=== PATIENT | male | born 1950 | race Caucasian/White ===

== ENCOUNTER 2017-02-22 01:48 | Inpatient (IN) | payer MEDICARE, MEDICAID ==
[~2017-02-22] VITALS: Ht 180.3 cm; Wt 170.4 kg
--- NOTE | ~2017-02-22 | ECHO ---
Transthoracic Echocardiography Report (TTE) Demographics Patient Name MOO CARPIO Date of Study 02/22/2017 Patient Number [id number] Visit Number [id number] Date of 1950 Room Number G6334 Gender Male Number Age 66 year(s) Referring Shantal Victor V Head Of Visual Merchandising Paris Kumar, Physician RT,RVT,RDCS Physician Interpreting Vijaya Russo Special Needs Babysitter Physician MD Supervising Ordering Shantal Campa MD/MLP Physician MD Nurse [employer] Dedicated Truck Driver Conclusions Summary Technically difficult study. Poor quality images. Overall LV systolic function appears to be preserved, Unable to visualize endocardial borders and unable to comment on accurate LVEF due to suboptimal visualization of the LV. Moderate left ventricular hypertrophy. The aortic root appears mildly dilated. The maximum diameter measures 4.2 cm. No significant valvular abnormalities. IVC imaging is consistent with normal RA pressures. Procedure Type of Study TTE procedure:2D Echocardiogram, M-Mode, Doppler , Color Doppler. Procedure Date Date: 02/22/2017 Start: 10:52 AM Study Location: Inpatient Portable Technical Quality: Limited visualization due to body habitus. Indications:Arrhythmia. Additional Indications:cholangitis Appropriate Use Criteria: 9 Patient Status: Routine HR: 104 bpm BP: 140/84 mmHg M-Mode/2D Measurements LV Diastolic Dimension: 5.19 cm LV Systolic Dimension: 3.93 cm LV PW Diastolic: 1.41 cm LV Septum Systolic: 2.92 cm Cardiac Output: 3.1 l/min LV PW Systolic: 1.87 cm AV Cusp Separation: 2.2 cm EF Estimated: 45 % LA Dimension: 3.6 cm MV EPSS: 0.7 cm LVOT: 2.1 cm LVOT VTI: 8.61 cm LV Stroke volume: 29.81 ml Doppler Measurements AV Peak Velocity: 1.16 m/s MV Peak E-Wave: 0.6 m/s AV Peak Gradient: 5.38 mmHg AV Mean Gradient: 3 mmHg MV P1/2t: 42 msec LVOT Peak Velocity: 0.58 m/s TR Velocity:2.28 m/s TR Gradient:20.79 mmHg Estimated PASP: 30.79 mmHg Estimated RAP:10 mmHg Estimated RVSP: 31 mmHg Findings Left Ventricle Moderate left ventricular hypertrophy. Right Ventricle RV is not well visualized. Left Atrium Normal left atrial size. Right Atrium Normal right atrial size. IVC imaging is consistent with normal RA pressures. Mitral Valve Normal mitral valve structure and function. Aortic Valve AV is not well visualized. No e/o significant or AI based on color/doppler interrogation. Tricuspid Valve Mild tricuspid regurgitation by color Doppler. The pulmonary pressure (RVSP) is 39 mmHg. Pulmonic Valve Normal pulmonic valve structure and function. Pericardial Effusion No evidence of pericardial effusion. Miscellaneous The aortic root appears mildly dilated. The maximum diameter measures 4.2 cm. Pleural Effusion No evidence of pleural effusion. Contractility Score LV regional wall motion:(0-Non visualized 1-Normal 2-Hypokinesis 3-Akinesis 4-Dyskinesis 5-Aneurysm) Signature dtt: MARIA FERNANDA LAU dtd: 02/22/17 1052 Physician Self Edit
--- NOTE | ~2017-02-22 | OR ---
PATIENT'S NAME: MOO CARPIO [facility] AGE: 66 Y [address] ROOM: [address] [place] [id number] LOCATION: GPCU ADMIT DATE: 02/22/2017 OR/Procedure Report DISCHARGE DATE: 02/26/2017 FAMILY PHYSICIAN: Kenneth Mak DO ATTENDING PHYSICIAN: DELORES HOLDER V SURGEON: Chapo Deluca MD ASSEMBLY STOCK SUPERVISOR: Chase Mathis PA-C DATE OF PROCEDURE: 02/25/2017 Added Assist per provider 03/02/2017 AO PREOPERATIVE DIAGNOSIS: Cholelithiasis, status post ERCP. POSTOPERATIVE DIAGNOSIS: Cholelithiasis, status post ERCP. PROCEDURE PERFORMED: Cholecystectomy. FINDINGS: The cystic duct was dilated, and stones were present in the gallbladder. ESTIMATED BLOOD LOSS: 20 mL. COMPLICATIONS: None. INDICATIONS: The patient is a 66-year-old male, who had cholelithiasis and was felt to be choledocholithiasis. He did undergo ERCP. He also had pancreatitis. Pancreatic enzymes improved, as well as his liver function tests with his cholelithiasis. I was asked to perform cholecystectomy. We discussed surgery with the patient and the risks, benefits, and alternatives, which included bleeding, infection, bile leak, bile duct injury, and injury to other viscera. We also discussed his obesity and complications associated with this, as well as pulmonary and cardiac complications. He understood the risks and elected to proceed. DESCRIPTION OF PROCEDURE: The patient was taken to the Operating Room. He was placed supine, given IV sedation, and was subsequently intubated. His abdomen was prepped with ChloraPrep and sterilely draped. Local anesthetic was infiltrated superior to the umbilicus in the midline. A transverse incision was created and the abdomen was elevated. A Veress needle was inserted. Pneumoperitoneum was induced. Following this, a 5-mm trocar was inserted, followed by insertion of the camera. There was no injury from initial trocar placement. Three more trocars were then positioned, the 11-mm epigastric and two 5-mm right subcostal ports. Skin overlying the peritoneum was first anesthetized prior to making the incisions. All three of these trocars were inserted under direct visualization. The gallbladder was grasped and it was elevated. The fatty liver made elevation more difficult. There were adhesions PATIENT'S NAME: MOO CARPIO [facility] AGE: 66 Y [address] ROOM: [facility] [place] [address] LOCATION: GPCU ADMIT DATE: 02/22/2017 OR/Procedure Report DISCHARGE DATE: 02/26/2017 FAMILY PHYSICIAN: Kenneth Mak DO ATTENDING PHYSICIAN: DELORES HOLDER V that were taken down both bluntly and with electrocautery. The infundibulum was then grasped and retracted inferiorly and laterally to expose Calot triangle. The cystic duct and artery were dissected around circumferentially. We felt we had obtained a critical window. The cystic duct was quite dilated. We clipped this and then divided it. Our clips would just barely reach across the cystic duct. Because of this, an Endoloop was placed around the cystic duct and secured. What was thought to be the cystic artery, was clipped and divided. After further inspection, this was felt to be a large lymphatic. We then were able to better identify the artery, which was able to be seen extending onto the gallbladder. This was then doubly clipped and divided. The gallbladder was then removed from liver bed using electrocautery. This was placed in EndoCatch bag and brought out through the epigastric port site. There were stones present in the gallbladder. The operative field was inspected and it appeared hemostatic. The clips appeared to be in good position on the cystic duct and artery. The area was irrigated and fluid was removed. The pneumoperitoneum was released. The trocars were removed. The trocar sites appeared hemostatic. WOUND CLOSURE: The fascia of the epigastric port site was approximated with 0 Vicryl suture, followed by skin closure of all four port sites with 4-0 Monocryl suture. Steri-Strips and sterile dressings were placed. POSTOPERATIVE CONDITION: The patient was extubated and sent to Recovery in good condition. MD TORRES IVERSON/tammy /[id number] Added Assist per provider 03/02/2017 AO d: 02/25/172121 t: 03/05/17611, OPERATIVE SUMMARY
--- NOTE | ~2017-02-22 | DS ---
PATIENT'S NAME: MOO CARPIO [facility] AGE: 66 Y [address] ROOM: [address] [place] [id number] LOCATION: GPCU ADMIT DATE: 02/22/2017 Discharge Summary DISCHARGE DATE: 02/26/2017 FAMILY PHYSICIAN: Kenneth Mak DO ATTENDING PHYSICIAN: Valente Murguia V ADDENDUM: PHYSICAL EXAMINATION: VITAL SIGNS: Temperature 98.2 degree Fahrenheit, pulse of 95, blood pressure 127/89, and respiratory rate of 18. GENERAL APPEARANCE: The patient is alert and awake in no acute distress and the patient eager to go home. HEAD: Normocephalic, atraumatic. CHEST: Clear to auscultation bilaterally. HEART: Irregularly irregular. No murmurs, rubs, or gallops. ABDOMEN: Soft, nontender, and nondistended. Bowel sounds present. APPLIED MARINE PHYSICS PROFESSOR: Alert and oriented x3. Motor and sensory are grossly intact. LOWER EXTREMITIES: Trace pitting edema. HOSEAWE MD JOSE GUADALUPE WOODWARD/tammy /[id number] d: 02/27/1714 t: 03/10/17 1618, DISCHARGE SUMMARY
--- NOTE | ~2017-02-22 | DS ---
PATIENT'S NAME: [facility]ON [facility] AGE: 66 Y [address] ROOM: [place] [address] LOCATION: GPCU ADMIT DATE: 02/22/2017 Discharge Summary DISCHARGE DATE: 02/26/2017 FAMILY PHYSICIAN: Kenneth Mak DO ATTENDING PHYSICIAN: Valente Murguia V ADMITTING DIAGNOSIS: Gallstone pancreatitis. DISCHARGE DIAGNOSES: 1. Cholangitis with cholecystitis. 2. Pancreatitis. 3. Diabetes mellitus. 4. Hypertension. 5. Acute on chronic kidney disease. 6. Persistent atrial fibrillation. 7. Hypothyroidism. 8. Obesity. 9. Obstructive sleep apnea. PROCEDURES: ERCP with stent placement and cholecystectomy. CONSULTATION: GI consultation and General Surgery consultation. HISTORY OF PRESENT ILLNESS: The patient is a 66-year-old male who presents here from [facility] with crampy mild epigastric and right upper quadrant pain associated with nausea, vomiting, and low-grade fever. Workup at [facility] revealed elevated transaminitis as well as evidence of cholecystitis with common bile duct and intra and extrahepatic duct dilation. A small gallstone was visible in the common bile duct. The patient was febrile at the outside hospital. The patient was transferred to our hospital. The patient was also noted to have uncontrolled blood glucose and blood glucose in the 400s. HOSPITAL COURSE: The patient was admitted. The patient was also found to have elevated lipase level and was started on IV fluids. Kept n.p.o. ERCP was held as the patient was on Eliquis. The patient had ERCP with stent placement with improvement of symptoms. General Surgery was consulted and the patient had cholecystectomy done on February 25, 2017. The patient tolerated the procedure well. During his stay, the patient was started on ceftriaxone. During his stay, the patient was afebrile and white blood cell count improved. Also, the patient had acute on chronic kidney disease and was treated with IV fluid with improvement of symptoms. The patient has chronic kidney disease stage IV. On evaluation of medication, the patient was on Janumet and metformin. On the day of discharge, those medications were held due to history of pancreatitis and chronic kidney disease with GFR below 40. A long PATIENT'S NAME: [facility] AGE: 66 Y [address] ROOM: [place] [id number] LOCATION: GPCU ADMIT DATE: 02/22/2017 Discharge Summary DISCHARGE DATE: 02/26/2017 FAMILY PHYSICIAN: Kenneth Mak DO ATTENDING PHYSICIAN: Valente Murguia V discussion was made about medication change. The patient was also started on detemir 10 units q.h.s. Diabetic education was consulted and use of insulin was discussed with the patient. The patient reports that he has used insulin before and is able to administer his medication. His hemoglobin A1c was 10. The patient was also told to hold his Eliquis until February 27, 2017, due to recent surgery and ERCP. The patient was discharged home in stable condition to follow up with GI and General Surgery. CONDITION: Stable. DISPOSITION: Home. DISCHARGE MEDICATION: See NOV. DISCHARGE INSTRUCTIONS: Start Eliquis on February 27, 2017, to discontinue Janumet and metformin and start Detemir 10 units q.h.s. and follow up with primary care physician. Followup with primary care physician and General Surgery. Greater than 30 minutes was spent on discharge planning. HOSEAWE MD JOSE GUADALUPE WOODWARD/tammy /[id number] d: 02/27/17722 t: 02/27/17 1749, DISCHARGE SUMMARY
--- NOTE | ~2017-02-22 | CON ---
PATIENT'S NAME: [facility] AGE: 66 Y [address] ROOM: [address] [place], [place] [address] LOCATION: GPCU ADMIT DATE: 02/22/2017 Consultation DISCHARGE DATE: 02/26/2017 FAMILY PHYSICIAN: Kenneth Mak DO ATTENDING PHYSICIAN: Valente Murguia V DATE OF CONSULTATION: 02/25/2017 REFERRING PHYSICIAN: Silvia Christopher MD [facility] Nephrology Consultation REASON FOR CONSULTATION: Acute kidney injury on chronic kidney disease, stage 3. HISTORY OF PRESENT ILLNESS: This is a 66-year-old male patient, who is admitted for sepsis secondary to cholangitis. The patient's creatinine on admission was 2.4, and has improved with IV hydration to 1.6 today. The patient was also noted to be on ARB, Lasix and does have a history of nausea and vomiting with some dehydration prior to his admission. A CT did show cholelithiasis with extrahepatic biliary ductal dilatation with mild cirrhotic liver. The patient did undergo an ERCP as well as laparoscopic cholecystectomy by Dr. Deluca. Due to the patient's acute kidney injury on chronic kidney disease, stage 3, Nephrology has been asked to consult to monitor his creatinine while he is inpatient. PAST MEDICAL HISTORY: As listed above includin. Atrial fibrillation. 2. Long-term anticoagulation in the form of Eliquis. 3. Morbid obesity. 4. Status post laparoscopic banding. 5. Dgk-tuzgbez-dnsmvkskz diabetes. 6. Diabetic neuropathy. 7. Obstructive sleep apnea. 8. Heart failure. 9. Stage 3 chronic kidney disease. 10. Diabetic nephropathy. 11. Depression. 12. Hyperlipidemia. 13. Thyroid disorder. PATIENT'S NAME: [facility] AGE: 66 Y [address] ROOM: [address] [place], [place] [address] LOCATION: GPCU ADMIT DATE: 02/22/2017 Consultation DISCHARGE DATE: 02/26/2017 FAMILY PHYSICIAN: Kenneth Mak DO ATTENDING PHYSICIAN: Valente Murguia V PAST SURGICAL HISTORY: 1. Laparoscopic band placement. 2. Right knee arthroplasty. SOCIAL HISTORY: The patient denies any smoking, drinking, or illicit drug use. FAMILY HISTORY: Reviewed and is noncontributory. There is no history of kidney disease or dialysis. ALLERGIES: SULFA. CURRENT HOME MEDICATIONS: Include: 1. Advair 1 to 2 puffs daily. 2. Aspirin 81 mg daily. 3. Cetirizine 10 mg daily. 4. Eliquis 5 mg p.o. b.i.d. 5. Ferrous sulfate 325 mg p.o. daily. 6. Glyburide unknown dose, daily. 7. Janumet unknown dose, daily. 8. Klor-Con unknown dose, daily. 9. Lasix 80 mg twice a day. 10. Levothyroxine 125 mcg daily. 11. Losartan 100 mg daily. 12. Metoprolol 100 mg twice a day. 13. Protonix 40 mg daily. 14. Sertraline 100 mg daily. 15. Simvastatin 10 mg daily. 16. Trulicity injected weekly. REVIEW OF SYSTEMS: GENERAL: Denies any new fever, chills, or night sweats. HEENT: Eyes; no double vision or blurred vision. Nose; no epistaxis or rhinorrhea. Mouth; no gingival bleeding. Throat; no sore throat, hoarseness, or cough. RESPIRATORY: Denies wheezing or hemoptysis. CARDIOVASCULAR: Denies any chest pain or palpitations. GASTROINTESTINAL: Did have some nausea and vomiting prior to his admission. Positive for loss of appetite. GENITOURINARY: Denies frequency, urgency, or hesitancy. MUSCULOSKELETAL: Denies new arthralgias or myalgias. NEUROLOGICAL: Denies numbness or tingling of the lower extremities. PATIENT'S NAME: MOO CARPIO [facility] AGE: 66 Y [address] ROOM: [address] [place], [place] [address] [facility] ADMIT DATE: 02/22/2017 Consultation DISCHARGE DATE: 02/26/2017 FAMILY PHYSICIAN: Kenneth Mak DO ATTENDING PHYSICIAN: Valente Murguia V HEMATOLOGICAL: Denies any bruising or bleeding, on Eliquis therapy. IMMUNOLOGICAL: Denies a history of recent infections. PHYSICAL EXAMINATION: VITAL SIGNS: Blood pressure is 98/60, saturation is 94% on 2 L, temperature 98.5, pulse 89, and respirations 18. GENERAL: On exam, this is a morbidly obese male who is in no acute distress. HEENT: His head is normocephalic and atraumatic. Nose is midline. Mouth; no gingival bleeding. Throat without lymphadenopathy or carotid bruits. NECK: Soft and supple. Full. CARDIOVASCULAR: Distant heart tones noted. RESPIRATORY: Lung sounds are clear to auscultation anteriorly and posteriorly. ABDOMEN: Obese, soft, and nontender. EXTREMITIES: Venous stasis changes bilaterally in the lower extremities with trace to 1+ lower extremity edema. NEUROLOGIC: Cranial nerves 2 through 12 are grossly intact. ASSESSMENT AND PLAN: 1. Acute kidney injury on chronic kidney disease, stage 3. This is likely prerenal etiology secondary to dehydration with poor oral intake and loss of appetite prior to admission. The patient has been on IV fluid and his creatinine has improved from 2.4 to 1.6 today. We will continue with the current plan of care. Abdominal ultrasound did not show any acute obstruction that could be contributing to his acute kidney injury. I did discuss the patient's plan of care via telephone with Dr. Campbell at the time of exam. We will continue to monitor his intake and output as well as daily weights while he is hospitalized. 2. Acute cholecystitis. The patient is status post endoscopic retrograde cholangiopancreatography with Gastroenterology. Further recommendations per Gastroenterology. 3. Atrial fibrillation, on long-term anticoagulation. 4. Diabetes. 5. Depression. 6. Hyperlipidemia. This patient's care has been collaborated with Dr. Campbell via telephone. His care is being conducted in consultation with Dr. Campbell as well as Mera Rubio DNP, WARP BLEACHING VAT TENDER. We will plan further recommendations as they are forthcoming. In the interim, the patient is to continue IV fluid hydration. MERA RUBIO DNP, WARP BLEACHING VAT TENDER FOR [facility] MARILYNN CAMPBELL MD PATIENT'S NAME: MOO CARPIO [facility] AGE: 66 Y [address] ROOM: [address] [place], [place] [address] LOCATION: GPCU ADMIT DATE: 02/22/2017 Consultation DISCHARGE DATE: 02/26/2017 FAMILY PHYSICIAN: Kenneth Mak DO ATTENDING PHYSICIAN: Valente Murguia/nickil /[id number] d: 03/10/17 1406 t: 03/15/17 1259, CONSULTATION REPORT
--- NOTE | ~2017-02-22 | CON ---
PATIENT'S NAME: [facility] AGE: 66 Y [address] ROOM: [id number] [place], [place] [address] LOCATION: GPCU ADMIT DATE: 02/22/2017 Consultation DISCHARGE DATE: FAMILY PHYSICIAN: Kenneth Mak DO ATTENDING PHYSICIAN: DELORES HOLDER V REFERRING PHYSICIAN: CAYDEN ALEGRIA MD CHIEF COMPLAINT: Abdominal pain. HISTORY OF PRESENT ILLNESS: The patient is a morbidly obese 66-year-old male, who was seen in [place]. He was transferred here after there were concerns for cholangitis. He was found to have elevated liver function tests, amylase and lipase. He also had a low- grade fever. He was seen here, was evaluated, was treated with antibiotics. Subsequently, there was ductal dilatation, was seen by Gastroenterology. Gastroenterology performed ERCP today. It appeared as though no stones were identified, a stent was placed. The patient says he is having no pain now, no nausea. When he presented initially he did have nausea and vomiting. He has had an ultrasound that revealed what was felt to be a stone versus polyp right at the neck of the gallbladder, 1.6 cm in size, this did not shadow significantly. PAST MEDICAL HISTORY: Atrial fib, morbid obesity, diabetes, diabetic neuropathy, sleep apnea, heart failure, chronic kidney disease, depression, hyperlipidemia. PAST SURGICAL HISTORY: Lap-Band placement, right knee arthroplasty, umbilical hernia repair with mesh. SOCIAL HISTORY: Does not smoke. Does not drink alcohol. FAMILY HISTORY: There is heart disease in the family, denies any other significant cancers. ALLERGIES: SULFA. HOME MEDICATIONS: Included: 1. Aspirin. 2. Potassium. 3. Levothyroxine. 4. Eliquis. PATIENT'S NAME: [facility] AGE: 66 Y [address] ROOM: [id number] [place], [place] [address] LOCATION: GPCU ADMIT DATE: 02/22/2017 Consultation DISCHARGE DATE: FAMILY PHYSICIAN: Kenneth Mak DO ATTENDING PHYSICIAN: DELORES HOLDER V 5. Feosol. 6. Lopressor. 7. Micronase. 8. Cozaar. 9. Protonix. 10. Advair. 11. Zyrtec. 12. Lasix. 13. Zocor. 14. Trulicity. 15. Zoloft. 16. Tylenol. REVIEW OF SYSTEMS: He has chronic pain, intermittent shortness of breath. He denies melena or hematochezia. No hematuria or dysuria. He does have diabetes and describes a thyroid condition although does not know if it is hyper or hypothyroidism. He does not have dysuria. He has peripheral neuropathy. PHYSICAL EXAMINATION: GENERAL: He is a morbidly obese 66-year-old male who is cooperative with the exam. HEENT: Head is normocephalic, atraumatic. Eyes are anicteric. NECK: Without lymphadenopathy. HEART: Distant. LUNGS: Clear to auscultation bilaterally. ABDOMEN: Soft and nontender. He has a scar in his left upper quadrant consistent with his Lap-Band placement. There is also a scar inferior to his umbilicus consistent with hernia repair. There are no palpable masses. Again, his abdomen is morbidly obese. EXTREMITIES: Reveal venous stasis changes. NEUROLOGIC: Gross motor is intact. ASSESSMENT: Gallstone pancreatitis, cholangitis, and cholecystitis. PLAN: Discussed the findings with Moo. He is at high risk of cholelithiasis although the area seen by ultrasound did not shadow, likely this represents stone by ERCP. He had a somewhat tattered appearing sphincter and was felt to represent passing of his stone. He does have a stent in place. I discussed with him observation versus surgery; risks of surgery which include bleeding, infection, bile leak, bile duct injury, injury to other viscera. We discussed his morbid obesity and increased complications with this as well as pulmonary and cardiac. He understands the risks of surgery and would like to proceed. PATIENT'S NAME: MOO CARPIO [facility] AGE: 66 Y [address] ROOM: [place] [address] LOCATION: GPCU ADMIT DATE: 02/22/2017 Consultation DISCHARGE DATE: FAMILY PHYSICIAN: Kenneth Mak DO ATTENDING PHYSICIAN: DELORES HOLDER V We will schedule this in the near future. MD TORRES IVERSON/modl /[id number] d: 02/24/17 2255 t: 03/05/17608, CONSULTATION REPORT
--- NOTE | ~2017-02-22 | CON ---
PATIENT'S NAME: MOO CARPIO [facility] AGE: 66 Y [address] ROOM: [id number] [place], [place] [address] LOCATION: GPCU ADMIT DATE: 02/22/2017 Consultation DISCHARGE DATE: FAMILY PHYSICIAN: Kenneth Mak DO ATTENDING PHYSICIAN: DELORES HOLDER V DATE OF CONSULTATION: 02/22/2017 REFERRING PHYSICIAN: CAYDEN ALEGRIA MD REFERRING PROVIDER: Delores Holder MD REASON FOR CONSULTATION: Cholangitis, choledocholithiasis. HISTORY OF PRESENT ILLNESS: This is a pleasant, 66-year-old male who was recently transferred from [facility]. The patient has a past medical history significant for diabetes mellitus; atrial fibrillation, on Eliquis; and morbid obesity, status post lap band placement. The patient presented to [facility] with acute abdominal pain. He states that around 8 p.m. on Wednesday night, he began having mid epigastric and bilateral upper quadrant abdominal pain associated with nausea as well as low-grade fevers. He denied any acute vomiting at that time. On evaluation at [facility], the patient was found to have cholecystitis as well as intra and extrahepatic biliary dilation per CT scan with lab workup showing elevated white blood cell count of 12.7, AST elevated at 346, ALT of 249, and alkaline phosphatase of 338. Total bilirubin was also elevated at 3.10. He also had elevated lipase of 7913 and amylase of 483. He also was febrile with a temperature of 100.0. The patient was then transferred to [facility] for further evaluation. The patient was seen and examined. He states that his pain has significantly improved since early this morning. He denies any current fever or chills as well as nausea or vomiting. The patient does report his last dose of Eliquis was around 7 a.m. on Wednesday morning. He does have a history of renal insufficiency as well. The patient currently denies any chest pain, chest pressure, shortness of breath, fever, or chills. PAST MEDICAL HISTORY: Atrial fibrillation, on Eliquis long-term anticoagulation; morbid obesity, status post lap band; sup-vkdexcv-yicsqgdbo diabetes, poorly controlled; diabetic neuropathy; obstructive sleep apnea; heart failure, with unknown ejection fraction; stage 3 chronic kidney disease due to type 2 diabetes; depression; hyperlipidemia; and "thyroid condition." PATIENT'S NAME: [facility] AGE: 66 Y [address] ROOM: [id number] [place], [place] [address] [facility] ADMIT DATE: 02/22/2017 Consultation DISCHARGE DATE: FAMILY PHYSICIAN: Kenneth Mak DO ATTENDING PHYSICIAN: DELORES HOLDER V PAST SURGICAL HISTORY: Lap band placement and right knee arthroplasty. He denies any upper endoscopy or colonoscopy. SOCIAL HISTORY: The patient denies any ongoing toxic habits at this time. FAMILY HISTORY: The patient denies any known gastrointestinal diseases or cancers. ALLERGIES: SULFA. CURRENT MEDICATIONS: Please refer to the medication administration record. REVIEW OF SYSTEMS: All-point review of systems was completed, all were negative except for those identified in the History of Present Illness. PHYSICAL EXAMINATION: GENERAL: A pleasant, 66-year-old gentleman, lying in bed, who appears to be in no acute distress. VITAL SIGNS: Temperature 98.5, pulse of 99, respirations of 18, blood pressure 98/60, and oxygen saturation is 94% on 2 L. SKIN: Mathews, warm, and dry. No jaundice. HEENT: Head is normocephalic and atraumatic. Pupils are equal, round, and reactive to light. Sclerae are clear, nonicteric. Oral mucosa is pink and moist. No thyromegaly. NECK: Soft and supple. CARDIOVASCULAR: Regular. Normal S1 and S2. RESPIRATORY: Respirations even and unlabored. Lungs are clear to auscultation, slightly diminished in the bilateral lobes. ABDOMEN: Soft, round, and obese. Mildly tender in the bilateral upper quadrants as well as midepigastric area. MUSCULOSKELETAL: No muscle weakness or atrophy. EXTREMITIES: No clubbing or cyanosis. 2+ edema noted to bilateral lower extremities. NEUROLOGICAL: Grossly nonfocal. LABORATORY AND DIAGNOSTIC DATA: Laboratory was reviewed from the outside facility, significant for white blood cell count elevated at 12.7. AST 346, ALT of 249, and alkaline phosphatase of 338. Total bilirubin 3.10, direct bilirubin 1.00, and indirect bilirubin 0.80. Amylase 483 and lipase is [address]13. CT completed showing cholelithiasis PATIENT'S NAME: [facility] AGE: 66 Y [address] ROOM: [id number] [place], [place] [address] LOCATION: GPCU ADMIT DATE: 02/22/2017 Consultation DISCHARGE DATE: FAMILY PHYSICIAN: Kenneth Mak DO ATTENDING PHYSICIAN: DELORES HOLDER V and intra and extrahepatic biliary ductal dilation, though the ductal prominence was not measured. Changes also showed mild cirrhotic liver. There is a current abdominal ultrasound pending, as well as laboratory obtained at [facility] is pending at this time. ASSESSMENT AND PLAN: Again, this is a very pleasant, 66-year-old male who was admitted with acute abdominal pain. 1. Suspected cholangitis. The patient will be kept n.p.o. at this time. He has been placed on ceftriaxone, this should be continued. The patient's CT scan did show intra and extrahepatic biliary dilation secondary to likely choledocholithiasis. At this time, we will wait for recent lab workup as well as abdominal ultrasound for further evaluation. 2. Choledocholithiasis. The patient most likely will need to undergo ERCP with cholecystectomy though the patient is on Eliquis with mild renal insufficiency. Likely, the patient's pain has improved, as well as he is afebrile. If the patient remains stable, we will plan on performing an ERCP with ductal clearance on Wednesday after clearance of the Eliquis. If the patient becomes unstable with continued fever, increasing abdominal pain, or worsening sepsis, we will go forth with an ERCP with stent placement sooner. We will again, wait for laboratory and abdominal ultrasound to be reviewed at this time. The patient should be continued again on ceftriaxone for suspected cholangitis. Further recommendations to be given after receipt of laboratory as well as abdominal ultrasound. Thank you for this consult. TRE BENZ, EQUIPMENT SERVICE TECHNICIAN FOR MD LAURA ESPINOZA/tammy /[id number] d: 02/22/17 1325 t: 03/03/17 1310, CONSULTATION REPORT
--- NOTE | ~2017-02-22 | HP ---
PATIENT'S NAME: [facility] AGE: 66 Y [address] ROOM: [place] [address] LOCATION: GPCU ADMIT DATE: 02/22/2017 History & Physical DISCHARGE DATE: FAMILY PHYSICIAN: PHYSICIAN, UNKNOWN ATTENDING PHYSICIAN: DELORES HOLDER V DATE OF SERVICE: CHIEF COMPLAINT: Abdominal pain. HISTORY OF PRESENT ILLNESS: The patient is a 66-year-old male, who has been transferred to [facility] from [place]. He initially presented there with approximately 12 hours of crampy mid epigastric to right upper quadrant abdominal pain associated with nausea, vomiting, as well as low-grade fevers. Workup at [place] revealed transaminitis as well as evidence of cholecystitis with common bile duct and intra and extrahepatic duct dilatation and small stones visible in his common bile duct. The patient was in fact febrile in [place], and was started on Zosyn. He was also noted to be profoundly hyperglycemic with Accu-Cheks in 400s and was started on insulin drip. Aside from that, he was hemodynamically stable at the other hospital and en route. Of note, the patient is on Eliquis for atrial fibrillation and the last time that he took Eliquis was approximately 12 hours ago, though he believes that he vomited the medicine up about half an hour after. He denies any chest pain, shortness of breath, or palpitations. REVIEW OF SYSTEMS: All systems have been reviewed and are negative aside for pertinent positives mentioned above. PAST MEDICAL HISTORY: As provided by the patient and extracted from accompanying documentation is as follows: 1. Atrial fibrillation, paroxysmal, on anticoagulation. 2. Morbid obesity. 3. Status post Lap-Band. 4. Gzu-liycoam-iddvkkuev diabetes, poorly controlled. 5. Diabetic neuropathy. 6. Obstructive sleep apnea, on BiPAP. 7. Documentation of heart failure with unknown ejection fraction. 8. 9. Stage 3 chronic kidney disease due to type 2 diabetes. 10. Depression. PATIENT'S NAME: [facility] AGE: 66 Y [address] ROOM: [place] [address] LOCATION: GPCU ADMIT DATE: 02/22/2017 History & Physical DISCHARGE DATE: FAMILY PHYSICIAN: PHYSICIAN, UNKNOWN ATTENDING PHYSICIAN: DELORES HOLDER V 11. Hyperlipidemia. 12. "Thyroid condition.". PAST SURGICAL HISTORY: Significant for placement of a Lap-Band and right knee arthroplasty. SOCIAL HISTORY: The patient has no active or history of toxic habits. CURRENT MEDICATIONS: 1. Advair. 2. Aspirin. 3. Cetirizine. 4. Eliquis. 5. Ferrous sulfate. 6. Glyburide. 7. Janumet. 8. Klor-Con. 9. Lasix 80 b.i.d. 10. Levothyroxine 125. 11. Losartan 100. 12. Metoprolol 100 b.i.d. 13. Pantoprazole 40 mg daily. 14. Sertraline 100 mg daily. 15. Simvastatin 10 mg. 16. Trulicity injected weekly. FAMILY HISTORY: Reviewed and is noncontributory due to a known broad range of medical problems as well as the underlying etiology for his current presentation. PHYSICAL EXAMINATION: VITAL SIGNS: Blood pressure 98/60, heart rate is 101 and irregular, saturating 96% on 2 L nasal cannula, afebrile, respirations are 16. GENERAL: Appears as a morbidly obese, elderly male, in no acute distress. NEUROLOGICAL: Shows no focal neurologic deficits. EYES: Shows pupils are equal and reactive to light. LYMPHATICS: Shows no cervical lymphadenopathy. ENDOCRINE: Shows no thyromegaly. LUNGS: Reveal trace crackles at bases bilaterally. HEART: Irregularly irregular at approximately 105 beats per minute with no appreciable murmurs, gallops, or rubs. ABDOMEN: Soft, somewhat tender especially in the right upper quadrant with diminished bowel sounds. : Reveals no costovertebral angle tenderness. PATIENT'S NAME: MOO CARPIO [facility] AGE: 66 Y [address] ROOM: [id number] [place], [place] [address] [facility] AD[facility] DATE: 02/22/2017 History & Physical DISCHARGE DATE: FAMILY PHYSICIAN: PHYSICIAN, UNKNOWN ATTENDING PHYSICIAN: DELORES HOLDER V VASCULAR: Reveals 2+ pedal pulses and 2+ pitting bilateral lower extremity edema. SKIN: Cool and dry. PSYCHIATRIC: Reveals appropriate mood, cognition, and affect. DIAGNOSTIC DATA: Studies from an outside facility are significant for an EKG which shows atrial fibrillation with rapid ventricular response and right bundle-branch block. CAT scan shows cholelithiasis, distention of the gallbladder, and intra and extrahepatic biliary ductal dilatation, correlate for right upper quadrant pain, consider sonography. White count of 12.7, hemoglobin is 16.3, platelets of 130. Negative cardiac enzymes. AST 346, ALT 249, bilirubin 310. Creatinine 1.9, unknown baseline. ASSESSMENT AND PLAN: This is a 66-year-old male, who will be admitted with: 1. Sepsis. This is likely due to cholangitis. We will very gently hydrate the patient given history of heart failure as well as crackles on exam. We will maintain his perfusion. We will treat him with Zosyn with the expectation of a biliary origin for his sepsis and we will follow blood cultures drawn at an outside hospital as well as drawn here. 2. Cholangitis. We will make the patient n.p.o. We will request a gastroenterology evaluation. We will get a right upper quadrant ultrasound. We will hold off on his anticoagulation in anticipation of an ERCP once Gastroenterology is comfortable with washout for Eliquis. 3. Gct-iujxuyp-qsghjgzfc diabetes, poorly controlled with complication. We will put the patient on a sliding scale for the time being. We will discontinue his metformin as he has received contrast. We will also discontinue his glyburide as he will be n.p.o. 4. Paroxysmal atrial fibrillation with rapid ventricular response. We will continue the patient on his beta-blockers, though I believe, we should half the dose given his soft blood pressures. We will monitor him on telemetry. We will hold off on anticoagulation as above. 5. Chronic kidney disease, stage 3. We will monitor his renal function. 6. Obstructive sleep apnea with BiPAP dependency. We will put him on a BiPAP, and provide him with supplemental oxygen as needed while we obtain his BiPAP. 7. Documented history of congestive heart failure. I discussed this with the patient, he is not sure what his ejection fraction is. He told me he had, what sounds to be an unremarkable nuclear stress test done 3 years ago, but we will get a 2-dimensional echocardiogram given his multiple comorbidities and need for surgical intervention. 8. Deep vein thrombosis prophylaxis will be instituted after we address his underlying biliary issue and at this point, he is anticoagulated with Eliquis. PATIENT'S NAME: MOO CARPIO [facility] AGE: 66 Y [address] ROOM: [id number] [place], [place] [address] LOCATION: [facility] ADMIT DATE: 02/22/2017 History & Physical DISCHARGE DATE: FAMILY PHYSICIAN: PHYSICIAN, UNKNOWN ATTENDING PHYSICIAN: DELORES HOLDER. Additional management will depend on clinical course. Time dedicated for this patient's encounter is 35 minutes. MD BAUDILIO AUGUSTIN/tammy /[id number] D: [id number] T: [id number] HISTORY & PHYSICAL
--- NOTE | ~2017-02-22 | OR ---
PATIENT'S NAME: MOO CARPIO [facility] AGE: 66 Y [address] ROOM: [place] [address] LOCATION: GPCU ADMIT DATE: 02/22/2017 OR/Procedure Report DISCHARGE DATE: 02/26/2017 FAMILY PHYSICIAN: Kenneth Mak DO ATTENDING PHYSICIAN: Valente Murguia V SURGEON: Cayden Alegria MD AGRICULTURAL EQUIPMENT OPERATOR: DATE OF PROCEDURE: 02/24/2017 ADDENDUM: A 10-Maori 5 cm biliary stent was placed before conclusion of the procedure. This was well documented in video photographs and was draining well. CAYDEN ALEGRIA MD AM/modl /[id number] d: 03/03/17 2313 t: 03/04/17 1628, OPERATIVE SUMMARY
[2017-02-22] MEDS ORDERED: BIPAP (04:25)
[2017-02-22] MEDS ORDERED: ASPIRIN LO-DOSE81 MG PO (04:26)
[2017-02-22] MEDS ORDERED: K-TAB ER20 MEQ PO (04:27)
[2017-02-22] MEDS ORDERED: LEVOTHROID (S125 MCG PO (04:27)
[2017-02-22] MEDS ORDERED: ELIQUIS2.5 MG PO (04:28)
[2017-02-22] MEDS ORDERED: FEOSOL325 MG PO (04:29)
[2017-02-22] MEDS ORDERED: LOPRESSOR100 MG PO (04:30)
[2017-02-22] MEDS ORDERED: COZAAR100 MG PO (04:31)
[2017-02-22] MEDS ORDERED: MICRONASE5 MG PO (04:31)
[2017-02-22] MEDS ORDERED: PROTONIX40 MG PO (04:34)
[2017-02-22] MEDS ORDERED: ADVAIR 250-501 EACH INH (04:35)
[2017-02-22] MEDS ORDERED: LASIX40 MG PO (04:36)
[2017-02-22] MEDS ORDERED: ZYRTEC10 MG PO (04:36)
[2017-02-22] MEDS ORDERED: ZOCOR10 MG PO (04:37)
[2017-02-22] MEDS ORDERED: TRULICITY1.5 MG/0.5 SUB-Q (04:38)
[2017-02-22] MEDS ORDERED: OXYGEN M-15 INH (04:40)
--- NOTE | 2017-02-22 07:20 | NUR ---
Patient began feeling epigastric pain and tenderness yesterday evening. Began having difficulty breathing and feeling short of breath. [facility]. Cardiac enzymes were negative. CT showed common bile duct stone. Blood sugar was 495 in ER. Patient started on Insulin gtt. 2L O2 placed. 4mg Zofran given and 3.375mg Zosyn started. Patient was then sent to [facility] per ambulance. Patient arrived to floor at 0410. Vital signs: HR 99 BP 98/60 RR 18 Temp 98.5. Blood Sugar 344. Patient has past history of lap band, placed 5 years ago, AFIB, Chronic Kidney Disease, Diabetes, CHF, and CVA with left sided weakness. Allergic to Sulfa. Patient resting comfortably in bed. Dr. Murguia admitting.
[2017-02-22 09:29] LABS: BASOPHIL % 0.3 %; EOSINOPHIL % 0.1 %; HEMATOCRIT 45.3 % (37.0-53.0); HEMOGLOBIN 15.5 g/dL (11.0-16.0); IMMATURE GRANULOCYTE # 0.1 K/uL (0.0-0.3); IMMATURE GRANULOCYTE % 0.5 %; LYMPHOCYTE # 0.6 K/uL (0.8-4.0); MCH 32.7 pg (27.0-34.0); MCHC 34.2 gm/dL (32.0-36.5); MCV 95.6 fl (83.0-98.0); MONOCYTE # 1.2 K/uL (0.0-1.0); MONOCYTE % 7.5 %; MPV 13.9 fl (9.4-12.4); NEUTROPHIL # (ANC) 13.8 K/uL (1.4-9.0); NEUTROPHIL % 87.6 %; NRBC % 0 /100WBC (0-0.00); PLATELET COUNT 130 K/uL (150-450); RBC 4.74 M/uL (3.50-5.50); RDW-CV 13.5 % (11.9-14.6); WBC 15.7 K/uL (4.0-11.0)
[2017-02-22 09:34] LABS: INR - (THERAPEUTIC) 1.05 (0.92-1.07); PTT 32 SECONDS (25-32)
[2017-02-22 09:49] LABS: ALBUMIN 2.8 gm/dL (3.5-5.0); ANION GAP 11.9 (10.0-19.0); CALCIUM 9.1 mg/dL (8.5-10.5); CREATININE 2.4 mg/dL (0.6-1.3); POTASSIUM 3.9 mMol/L (3.7-5.1); TOTAL BILIRUBIN 4.7 mg/dL (0.0-1.5); TOTAL PROTEIN 6.7 g/dL (6.0-8.4)
[2017-02-22] MEDS ORDERED: JANUMET XR 1001 EACH PO (10:25)
[2017-02-22] MEDS ORDERED: ZOLOFT50 MG PO (10:26)
[2017-02-22] MEDS ORDERED: TYLENOL325 MG PO (10:27)
--- NOTE | 2017-02-22 10:30 | NUR ---
Diabetes consult: Patient admitted this morning for sepsis. The patient has a history of Type II diabetes, with a current A1C of 10.5%. Th patient is having some nausea this morning and has a washcloth covering his eyes during our interaction. Introduced self to the patient and explained my nursing role. Will defer education at this time due to the patient being acutely ill. Patient's blood sugar will be controlled with Novlog aggressive correction every 6 hours. He remains NPO, awaiting a gastenterologist consultation.
--- NOTE | 2017-02-22 14:30 | NUR ---
Introduced self and CM role to Porfirio. He tells me that he lives at home in [place] alone and plans to return there when he is cleared to do so. Porfirio daughter and son in law come and stay with him on the weekends so they are there to help him out if needed. They often do the grocery shopping and meal prepping for him if he needs it. In reviewing his chart and talking to nursing, it sounds like he is scheduled to have an ERPC done so he will most likely be with us a few days. Porfirio shares with me that, at home, he gets around with a FWW, but also says that he "doesn't really do a bunch as far as physical activity goes." He is currently on O2, which according to him, he wasn't on at baseline. He does use a Bipap at night or anytime he is sleeping. Porfirio does his own medications at home, gets them filled at [facility] in [place]. Prior to coming into us, he states that he was on less than 20 medications at home. States he will continue to do his own medications when dimissed. His PCP is Dr.Jason Mak and he sees' him on a regular basis. Porfirio denies any needs for DME or HHC upon dismissal. He tells me that his family will come and pick him up when he is ready to leave us. No other questions, needs or concerns. CM to continue to follow and assist.
--- NOTE | 2017-02-22 15:54 | NUR ---
A&O X3 -DROWSY. 2PA. NO C/O PAIN -TENDER ABD. SBP 130'S-140'S. HR 90'S-100'S. 1L02 CPAP AT NOC PER HOME. AFEBRILE. CLEAR LIG. INT ATBX L FA IV@ 75 NS. LS CLEAR/DIM. BM TODAY. VD PER URINAL. REF CHAIR. 2+ EDEMA BLE. ACHS AGGRESSIVE SCALE. NO N/V. PLAN IS ERCP WED AFTER ELIQUIS IS OUT OF SYSTEM
--- NOTE | 2017-02-23 03:41 | NUR ---
Significant Event: A&Ox3, VSS on 1L, CPAP at HS. Repositions self. Voids per urnial. BM per bed miguel, patient refuses to get out of bed. Denies pain. NS at 75 into left forearm. Accuchecks Q6hrs, agressive scale. Denies needs. Rested well this shift. Follow up: ERCP planned on Wednesday.
--- NOTE | 2017-02-23 10:00 | NUR ---
Diabetes consult; Patient reports feeling better today. He is scheduled for a ERCP on Wednesday. Attempted to assess the patient's level of understanding regarding his diabetes, however he was short and somewhat irritable. He does report feeling tired. Will continue to follow and assess educational needs prior to discharge.
--- NOTE | 2017-02-23 14:44 | NUR ---
Patient is alert and oriented, hypertensive this afternoon. 2 assist but has not been out of bed. Repositions slightly by himself but will ask for help if needed. Has been having some eye discomfort from the light, has been wearing a cold wash cloth on his face and 2L O2 for comfort. Q6 hour accuchecks with 1100 BS at 212, aggressive scale so 6 units given. History of stroke, L) sided weakness. Has some redness in the fold but skin in intact. NS infusing at 75ml/hr to L) wrist, R) forearm is saline locked. Will be NPO after midnight for an ERCP in the AM, currently on a clear liquid diet. Hold aspirin for tomorrow.
[2017-02-24 04:33] LABS: BASOPHIL % 0.4 %; EOSINOPHIL # 0.2 K/uL (0.0-0.5); EOSINOPHIL % 2.2 %; HEMATOCRIT 45.6 % (37.0-53.0); HEMOGLOBIN 15.8 g/dL (11.0-16.0); IMMATURE GRANULOCYTE # 0.1 K/uL (0.0-0.3); IMMATURE GRANULOCYTE % 0.6 %; LYMPHOCYTE # 0.8 K/uL (0.8-4.0); LYMPHOCYTE % 7.5 %; MCH 32.9 pg (27.0-34.0); MCHC 34.6 gm/dL (32.0-36.5); MONOCYTE # 0.8 K/uL (0.0-1.0); MONOCYTE % 7.7 %; MPV 13.1 fl (9.4-12.4); NEUTROPHIL # (ANC) 8.9 K/uL (1.4-9.0); NEUTROPHIL % 81.6 %; NRBC % 0 /100WBC (0-0.00); PLATELET COUNT 118 K/uL (150-450); RDW-CV 13.5 % (11.9-14.6); WBC 10.9 K/uL (4.0-11.0)
[2017-02-24 04:42] LABS: INR - (THERAPEUTIC) 1.07 (0.92-1.07); PROTIME 11.2 SECONDS (9.8-11.4)
[2017-02-24 04:56] LABS: ALBUMIN 2.4 gm/dL (3.5-5.0); ANION GAP 10.7 (10.0-19.0); CALCIUM 8.5 mg/dL (8.5-10.5); CREATININE 1.6 mg/dL (0.6-1.3); POTASSIUM 3.7 mMol/L (3.7-5.1); TOTAL PROTEIN 6.7 g/dL (6.0-8.4)
--- NOTE | 2017-02-24 04:57 | NUR ---
Significant events: Pt A/Ox3. VSS. On 2L/NC, CPAP at night. Repositions self. Voids per urinal. NPO since midnight for ERCP this AM. Accucheck Q6H. No pain. Slept most of shift, cooperative with cares.
[2017-02-24 05:00] LABS: TOTAL BILIRUBIN 1.8 mg/dL (0.0-1.5)
--- NOTE | 2017-02-24 09:10 | NUR ---
Diabetes consult: Patient's blood sugar this morning is 165 and being managed by Novolog aggressive correction scale. Currently, the patient is down having an ERCP. Will continue to follow.
--- NOTE | 2017-02-24 14:17 | NUR ---
0955 Stopped by to visit with Porfirio. LUCERO Yan reports that he is out of the room for his ERCP right now. Will try to see him later today or tomorrow to make sure no plans have changed as far as dismissing to home goes. CM to continue to follow and assist.
--- NOTE | 2017-02-24 19:24 | NUR ---
PATIENT WENT TO HAVE AN ERCP THIS AM. PLAN FOR A LAPECHOLE IN THE NEAR FUTURE.
--- NOTE | 2017-02-25 04:11 | NUR ---
Signicant events: Pt A/Ox3. VSS. No complaints of pain. NPO since midnight for lap jay jay today. NS at 75ml/hr. Up 1PA. VSS. Q6H accucheck, aggressive sliding scale. Voids per urinal. More pleasant this shift. 1L/NC. Cooperative with cares.
[2017-02-25 04:51] LABS: BASOPHIL % 0.5 %; EOSINOPHIL # 0.3 K/uL (0.0-0.5); EOSINOPHIL % 3.8 %; HEMATOCRIT 44.8 % (37.0-53.0); HEMOGLOBIN 14.9 g/dL (11.0-16.0); IMMATURE GRANULOCYTE # 0.1 K/uL (0.0-0.3); IMMATURE GRANULOCYTE % 0.6 %; LYMPHOCYTE # 0.9 K/uL (0.8-4.0); LYMPHOCYTE % 10.6 %; MCH 32.3 pg (27.0-34.0); MCHC 33.3 gm/dL (32.0-36.5); MCV 97.2 fl (83.0-98.0); MONOCYTE # 0.8 K/uL (0.0-1.0); MONOCYTE % 9.3 %; MPV 13.2 fl (9.4-12.4); NEUTROPHIL # (ANC) 6.1 K/uL (1.4-9.0); NEUTROPHIL % 75.2 %; NRBC % 0 /100WBC (0-0.00); PLATELET COUNT 124 K/uL (150-450); RBC 4.61 M/uL (3.50-5.50); RDW-CV 13.8 % (11.9-14.6); WBC 8.2 K/uL (4.0-11.0)
[2017-02-25 05:19] LABS: ALBUMIN 2.2 gm/dL (3.5-5.0); CALCIUM 8.3 mg/dL (8.5-10.5); CREATININE 1.6 mg/dL (0.6-1.3); TOTAL PROTEIN 6.3 g/dL (6.0-8.4)
[2017-02-25 05:21] LABS: TOTAL BILIRUBIN 1.4 mg/dL (0.0-1.5)
--- NOTE | 2017-02-25 14:34 | NUR ---
Diabetes Center note: 1400 Patient just returned from procudure today, now is not appropriate time for education. No family present at this time. Booklet and assessment form left at bedside. Will check in with patient on 02/26/17 to assess educational needs
--- NOTE | 2017-02-25 15:16 | NUR ---
PATIENT WENT TO [facility] AT [facility]OUND 0800 AND RETURNED FROM PACU AT 1315.
--- NOTE | 2017-02-25 17:15 | NUR ---
PATIENT WENT FOR A LAPCHOLE TODAY. PROCEDURE WENT WELL. PATIENT HAS 4 SITES ON ABDOMIN THAT ARE DRY AND INTACT WITH A SMALL AMOUNT OF DRAINAGE.
[2017-02-26 04:16] LABS: BASOPHIL # 0.1 K/uL (0.0-0.2); BASOPHIL % 0.7 %; EOSINOPHIL # 0.2 K/uL (0.0-0.5); HEMATOCRIT 43.3 % (37.0-53.0); HEMOGLOBIN 14.4 g/dL (11.0-16.0); IMMATURE GRANULOCYTE # 0.1 K/uL (0.0-0.3); IMMATURE GRANULOCYTE % 0.8 %; LYMPHOCYTE # 0.8 K/uL (0.8-4.0); LYMPHOCYTE % 11.3 %; MCH 32.2 pg (27.0-34.0); MCHC 33.3 gm/dL (32.0-36.5); MCV 96.9 fl (83.0-98.0); MONOCYTE # 0.7 K/uL (0.0-1.0); MONOCYTE % 10.2 %; MPV 12.6 fl (9.4-12.4); NEUTROPHIL # (ANC) 5.4 K/uL (1.4-9.0); NRBC % 0 /100WBC (0-0.00); PLATELET COUNT 135 K/uL (150-450); RBC 4.47 M/uL (3.50-5.50); RDW-CV 13.7 % (11.9-14.6); WBC 7.3 K/uL (4.0-11.0)
[2017-02-26 04:31] LABS: ALBUMIN 2.2 gm/dL (3.5-5.0); ANION GAP 11.5 (10.0-19.0); CALCIUM 8.2 mg/dL (8.5-10.5); CREATININE 1.6 mg/dL (0.6-1.3); POTASSIUM 3.5 mMol/L (3.7-5.1); TOTAL PROTEIN 6.2 g/dL (6.0-8.4)
--- NOTE | 2017-02-26 05:24 | NUR ---
A/O. HR 90-100s. SBP 140-160s. 3L NC O2. TYLENOLx1 FOR INSICIONAL PAIN. 1A UP TO CHAIR. NO BM. VOIDS PER URINAL. HOME TODAY.
--- NOTE | 2017-02-26 11:07 | NUR ---
Diabetes center note; [id number] Wrote recommendation for MD to consider having patient be dismissed on insulin injections, A1C was 10.5%, goal is 6.5 %. patient states that he has taken insulin injections in the past, but currently takes Trilicity, micronase and janumet at home. Patient states he doesn't have meter that works at home, a new meter is provided Cont[employer] EZ and recommended for patient to test blood sugars FBS in a.m. and 2 hours after 2 meals, throughout the day. To record in log book and take results to JAMES Pope that he sees as primary care provider. Goal for blood sugars 80-160. CDE does demonstrate the use on insulin pen device, insulin action, storage, site rotation details provided and patient refuses to return demo, as he states knowing how to do this in the past. Reviewed other aspects of diabetes care, as per Diabetes Survival Skills checklist, as copy of placed on the chart. Patient states understanding education provided and agrees to set up appt with dentist and eye MD in near future. Patient is also agreeable to to Follow up with Dr. Edwards (rao) Patient states understanding risks of complications of uncontrolled diabetes. Phone number provided to patient for questions
--- NOTE | 2017-02-26 13:08 | NUR ---
Reviewed Porfirio' chart, it appears that he is going to be dismissed today. Orders have been started, but are not yet complete, but from what his RN tells me, doctors will come finish orders later and he will go home. Talked with Porfirio for just a minute, confirmed with him that his plan is home. He tells me it is. He says he is working on lining up someone to come and pick him up. No other questions, needs or concerns. CM to continue to follow and assist. Plan home today.
--- NOTE | 2017-02-26 13:51 | NUR ---
DIABETES ED CONSULT RECEIVED. WENT OVER THE COUNT YOUR CARBS BOOKLET W/PT. ANSWERED PT'S QUESTIONS. PT ABLE TO VERBALIZE CARB CONTAINING FOODS AND HOW MANY CARBS AT EACH MEAL HE CAN HAVE. LEFT WRITTEN INFORMATION W/PT, ALONG WITH RD CONTACT INFO. ENCOURAGED TO CALL WITH ANY QUESTIONS.
[2017-02-26] MEDS ORDERED: LEVEMIR FL100 UNIT/1 SUB-Q (14:49)
--- NOTE | 2017-02-26 16:34 | NUR ---
PATIENT AND FRIEND GIVEN WRITTEN DISMISSAL INSTRUCTIONS INCLUDING NEW HOME MEDICATION LIST WITH INFORMATION ON NEW MEDS, PRESCRIPTIONS, FOLLOW-UP APPOINTMENT TIMES, DIET AND ACTIVITY RESTRICTIONS. INFORMATION ALSO PROVIDED TO PATIENT ON HOW TO CARE FOR LAP GREGORY SITES. PATIENT STATES UNDERSTANDING OF INFORMATION DISCUSSED WITH RN. PIV TO R) FA DC'D WITH LUPIS APPLIED. TELEMETRY DC'D AND PATIENT DRESSED IN OWN CLOTHING. TAKEN TO FRONT OF [facility] VIA WHEELCHAIR ACCOMPANIED BY RN, BELONGINGS AND FRIEND AT 1525.
== END 2017-02-26 15:25 | disposition disaster alternative care site (69) | DRG 853 ==
LOC: GPCU 01:48
PROVIDERS: Family Medicine; Physician Assistant; Registered Nurse; Surgery; ADMIT Internal Medicine
PROC: 0FJD8ZZ Inspection of Pancreatic Duct, Via Natural or Artificial Opening Endoscopic (ICD-10-PCS; principal; 2017-02-24)
PROC: 0FT44ZZ Resection of Gallbladder, Percutaneous Endoscopic Approach (ICD-10-PCS; 2017-02-25)
DX: A41.9 Sepsis, unspecified organism (principal); K85.10 Biliary acute pancreatitis without necrosis or infection; N17.9 Acute kidney failure, unspecified; K83.0 Cholangitis; I50.22 Chronic systolic (congestive) heart failure; N18.4 Chronic kidney disease, stage 4 (severe); E11.22 Type 2 diabetes mellitus with diabetic chronic kidney disease; I48.0 Paroxysmal atrial fibrillation; Z68.43 Body mass index [BMI] 50.0-59.9, adult; K80.10 Calculus of gallbladder with chronic cholecystitis without obstruction; E66.01 Morbid (severe) obesity due to excess calories; E11.65 Type 2 diabetes mellitus with hyperglycemia; F32.9 Major depressive disorder, single episode, unspecified; G47.33 Obstructive sleep apnea (adult) (pediatric); J44.9 Chronic obstructive pulmonary disease, unspecified; K75.9 Inflammatory liver disease, unspecified; K80.20 Calculus of gallbladder without cholecystitis without obstruction; Z99.81 Dependence on supplemental oxygen; Z79.82 Long term (current) use of aspirin
CPT/HCPCS: A9270; C1769; J0696; J2001; J2405; J7030; J7040; J7050

== ENCOUNTER → 2017-03-29 | Day surgery (SDC) | payer MEDICARE, MEDICAID ==
[~2017-03-29] VITALS: Ht 182.9 cm; Wt 167.7 kg
[~2017-03-29] MED LIST: ADVAIR 250-501 EACH INH; ASPIRIN LO-DOSE81 MG PO; BIPAP; COZAAR100 MG PO; ELIQUIS2.5 MG PO; FEOSOL325 MG PO; JANUMET XR 1001 EACH PO; K-TAB ER20 MEQ PO; LASIX40 MG PO; LEVEMIR FL100 UNIT/1 SUB-Q; LEVOTHROID (S125 MCG PO; LOPRESSOR100 MG PO; MICRONASE5 MG PO; OXYGEN M-15 INH; PROTONIX40 MG PO; TRULICITY1.5 MG/0.5 SUB-Q; TYLENOL325 MG PO; ZOCOR10 MG PO; ZOLOFT50 MG PO; ZYRTEC10 MG PO
== END | disposition disaster alternative care site (69) ==
LOC: GPOC 03-22 10:00 → GEND 07:42
PROC: 0DC88ZZ Extirpation of Matter from Small Intestine, Via Natural or Artificial Opening Endoscopic (ICD-10-PCS; principal; 2017-03-29)
DX: Z46.59 Encounter for fitting and adjustment of other gastrointestinal appliance and device (principal); E11.22 Type 2 diabetes mellitus with diabetic chronic kidney disease; I13.0 Hypertensive heart and chronic kidney disease with heart failure and stage 1 through stage 4 chronic kidney disease, or unspecified chronic kidney disease; N18.3 Chronic kidney disease, stage 3 (moderate); I50.32 Chronic diastolic (congestive) heart failure; E78.5 Hyperlipidemia, unspecified; F32.9 Major depressive disorder, single episode, unspecified; Z79.899 Other long term (current) drug therapy; Z79.82 Long term (current) use of aspirin; Z90.49 Acquired absence of other specified parts of digestive tract; Z98.890 Other specified postprocedural states
CPT/HCPCS: J2001; J7030